=== PATIENT | male | born 1945 | race Caucasian/White ===

== ENCOUNTER → 2023-01-21 | Emergency (ER) | payer OTHER ==
[~2023-01-21] VITALS: Ht 180.3 cm; Wt 102.1 kg
[2023-01-21 14:12] LABS: HEMATOCRIT 38.8 % (39.0-48.0); HEMOGLOBIN 12.8 g/dL (13-16.00); MEAN CELL VOLUME 96.9 fL (80.0-100.00); PLATELET COUNT 193 K/uL (150-450); RED BLOOD COUNT 4.01 M/uL (4.00-6.00); RED CELL DISTRIBUTION WIDTH 13.3 % (11.5-14.5)
[2023-01-21 14:47] LABS: ALBUMIN 3.4 gm/dL (3.4-5.0); BILIRUBIN TOTAL 0.72 mg/dL (0.3-1.2); CALCIUM 9.2 mg/dL (8.5-10.1); CREATININE SERUM 1.36 mg/dL (0.70-1.30); GFR 50.95; GLOBULINA 3.1 G/DL (2.4-3.5); POTASSIUM 3.77 mEq/L (3.5-5.1); TOTAL PROTEIN 6.5 gm/dL (6.4-8.2)
[2023-01-21 20:17] LABS: INR 0.98; PARTIAL THROMBOPLASTIN TIME 27.3 SECONDS (22.0-34.0); PROTHROMBIN TIME 10.3 SECONDS (9.0-11.5)
== END | disposition designated cancer center or children's hospital (05) ==
LOC: ER 12:58
PROVIDERS: Emergency Medicine
DX: S00.83XA Contusion of other part of head, initial encounter (principal); W18.30XA Fall on same level, unspecified, initial encounter; Y93.89 Activity, other specified; Y92.018 Other place in single-family (private) house as the place of occurrence of the external cause; Y99.9 Unspecified external cause status; I62.9 Nontraumatic intracranial hemorrhage, unspecified; I10 Essential (primary) hypertension; Z88.0 Allergy status to penicillin; Z85.46 Personal history of malignant neoplasm of prostate; Z20.822 Contact with and (suspected) exposure to COVID-19